=== PATIENT | female | born 1950 | race Caucasian/White ===

== ENCOUNTER 2020-01-02 10:43 | Outpatient (CLI) | payer MEDICARE, MEDICAID, SELFPAY ==
--- NOTE | ~2020-01-02 | CT_ITS ---
EXAMINATION: CT lung screening DATE: 01/02/2020 11:11 INDICATION: Personal history of tobacco dependence, current smoker with 30 pack year history TECHNIQUE: Computed tomography (CT) of the chest was performed without intravenous contrast. The dose -length product (DLP) was 90.01 mGy-cm. Automated exposure control and iterative reconstruction techn [employer] were employed. COMPARISON: 12/28/2018 FINDINGS: There is severe emphysema. Changes of left upper lobectomy are noted. A bronchocele in the left lower lobe. There is a stable 3 mm at the minor fissure. The previously described 5 mm nodule of the right lower lobe has nearly completely resolved, consistent with resolved infection/information. Calcified pulmonary nodules and calcified left hilar and mediastinal lymph nodes are consistent with old granulomatous disease. Fusion or pneumothorax. No pathologically enlarged thoracic lymph nodes a re identified. The heart size is normal. Again noted are cysts of the liver which measure up to 11 mm in the left lobe. Punctate calcifications of the liver and spleen are consistent with old granulomat ous disease. There is mild thoracic spondylosis. IMPRESSION: 1. Lung-RADS category 2: Benign appearance or behavior. Continue annual screening with noncontrast lo w-dose chest CT in 12 months. Reviewed, dictated and finalized at location B. IMPRESSION: 1. Lung-RADS category 2: Benign appearance or behavior. Continue annual screeni ng with noncontrast low-dose chest CT in 12 months.
== END 2020-01-02 10:44 | disposition home or self-care (01) ==
LOC: ANHIMG 10:47
PROVIDERS: PCP Internal Medicine; Visit Provider Nurse Practitioner Family
DX: Z12.2 Encounter for screening for malignant neoplasm of respiratory organs (principal); Z87.891 Personal history of nicotine dependence
CPT/HCPCS: G0297

== ENCOUNTER 2021-08-13 23:54 | Inpatient (IN) | payer MEDICARE, MEDICAID, SELFPAY ==
[2021-08-14] VITALS (18 sets, daily range): BP systolic 110–201; BP diastolic 55–115; PULSE 76–106; RESP 16–29; TEMP 35.9–37; O2SAT 92–99; BMI 21.0
--- NOTE | 2021-08-14 00:36 | ADMGEN ---
At 2358 This patient, Bonny Storey, was admitted to [facility] S[facility] Room 314-01. Patient/family oriented to hospital policies and general routines including ID bracelet, bed and alarms, visiting hours, pain management, procedures, bathroom and other care routines, personal items, smoking policy, room service/diet, and visiting hours. Information on how to activate the Rapid Response Team has been discussed. Patient/Family are encouraged to report perceived risks to care and to ask questions if they do not understand what they are told or what they should do.
--- NOTE | 2021-08-14 00:43 | PM.IMHP ---
H&P: HPI History of Present Illness Date/Time: 08/14/21 00:43 Chief Complaint: Vomiting blood Narrative: 70-year-old female with past medical history of chronic tobacco abuse, severe COPD, moderate pulmonary hypertension, hiatal hernia, peptic ulcer disease and chronic headaches who presented to the ER at [facility] via EMS due to vomiting blood. She reports that she vomited a large amount of blood. The patient reports that she had a EGD and colonoscopy a few months ago at [place] due to upper GI bleed. At the time she was told she had bleeding in her small bowel. She stated she had 1 EGD with [facility] [place] a [place] and then had to have a repeat EGD a few days later due to recurrent bleeding. She reports that she has been having a intermittent epigastric abdominal pain for the last couple of months. When the pain occurs it will last for 2 or 3 days. She reports that the pain is sharp and stabbing in nature and at times can be a 10/10 in intensity. She reports that her pain has resolved after being placed on IV Protonix 40 mg and a Protonix drip at the outside ER. Her pain radiates through to her back. Today when she had the pain she went to laid down. She the shortly thereafter had to get up because she felt nauseated and vomited a large amount of blood. She reported that the blood was dark red in color and. Have clots. She had not had anything to eat all day. She reports that she usually does not eat until the evening meal. She had not had any nausea prior to the onset of her abdominal pain. She denies any fevers or chills. She has been taking aspirin at least 2 tabs a day despite every day due to frequent headaches. She reports that the aspirin is the only thing that helps with her headaches. She has been compliant with her home PPI therapy. It looks as if the patient was started on Carafate in April after her recent GI bleed. The patient cannot tell me what PPI she is actually on it does not look like she has had her Protonix filled since May 2020. The patient denies actually being on omeprazole which is listed on her home med rec. She denies any use of ibuprofen, naproxen or Advil. She is not on blood thinners. She denies any chest pain. She has chronic shortness of breath and wheezing that is unchanged from baseline. She could then used to smoke a pack of cigarettes per day. She reports that when she had her recent GI bleed a few months ago that she required a couple of units of blood transfusion. She denies any hematochezia or melena. The patient's hemoglobin April 2021 was 15 according to the ER physician at the outside hospital. Patient's hemoglobin at the outside hospital was 11.3. Review of Systems Review of Systems: 12 systems were reviewed with pertinent positives and negatives per HPI. Except as documented in the HPI, all other systems were reviewed and are negative. [facility] Past Medical History Medical History (Updated 08/14/21 @ 04:41 by Vanita Fuchs DO) Anxiety and depression COPD (chronic obstructive pulmonary disease) PFTs May 2016: Severe obstructive pulmonary disease. Markedly decreased DLCO GERD (gastroesophageal reflux disease) History of cancer of lower lobe bronchus or lung Patient denies history of lung cancer or mass History of fracture of left ankle Hx of adenomatous colonic polyps Hypertension Moderate pulmonary hypertension Noted on echocardiogram December 2016: Grade 1 diastolic dysfunction, EF 77 5%, RVSP 45-50 PUD (peptic ulcer disease) Stye external Surgical History Surgical History (Updated 08/14/21 @ 04:38 by Vanita Fuchs DO) History of lobectomy of lung (~1999) Due to infected left upper lobe partial pneumonectomy Hx laparoscopic cholecystectomy Hx of colonoscopy Hx of esophagogastroduodenoscopy Hx of tonsillectomy Family History Family History Father Diabetes mellitus Sibl
[2021-08-14] MEDS: SODIUM CHLORIDE 0.9% IV 1,000 ML 100 ML IV CONT ×2 (01:19→10:39)
[2021-08-14 01:22] LABS: Basophils Absolute Auto 0.1 K/mm3 (0.0-0.1); Eosinophils Absolute Auto 0.1 K/mm3 (0-0.3); Eosinophils Percent Auto 0.9 % (0-4.4); Hematocrit 31.1 % (37.0-47.0); Hemoglobin 9.7 g/dL (12.0-15.0); Immature Granulocyte Absolute 0.03 K/mm3 (0.00-0.031); Immature Granulocyte Percent A 0.4 % (0-0.5); Lymphocytes Absolute Auto 1.75 K/mm3 (0.9-3.2); Mean Corpuscular HGB Conc 31.2 g/dl (32-36); Mean Corpuscular Hemoglobin 29.1 pg (26-34); Mean Corpuscular Volume 93.4 fl (80-100); Mean Platelet Volume 10.6 fl (7.4-10.4); Monocytes Absolute Auto 0.8 K/mm3 (0.1-0.6); Monocytes Percent Auto 9.4 % (2.6-8.5); Neutrophils Absolute Auto 5.3 K/mm3 (1.3-6.7); Neutrophils Percent Auto 66.3 % (45.5-73.1); Platelet Count Result 240 k/mm3 (150-375); Red Blood Count 3.33 M/mm3 (4.2-5.4); Red Cell Distribution Width 13.2 % (11.5-14.5)
[2021-08-14 01:33] LABS: Alanine Aminotransferase 10 U/L (4-35); Albumin Level 3.3 g/dL (3.5-5.1); Alkaline Phosphatase 54 U/L (38-126); Anion Gap 6 mmol/L (8-16); Aspartate Amino Transferase 18 U/L (14-36); Bilirubin,Total 0.5 mg/dL (0.2-1.3); Blood Urea Nitrogen 32 mg/dL (7-17); Calcium 8.1 mg/dL (8.4-10.2); Carbon Dioxide 30 mmol/L (22-30); Chloride 104 mmol/L (98-107); Estimated CRCL calculation 62 ml/min; Estimated Glomerular Filt Rate > 60; Glucose 94 mg/dL (65-110); Potassium 3.3 mmol/L (3.4-5.0); Sodium 140 mmol/L (137-145)
--- NOTE | 2021-08-14 05:24 | PC.NURSE ---
Pt up to restroom, large amount of bark red blood in the toilet and several blood clots on the floor. Pt said this is the first time she notice blood in her stool.
[2021-08-14 06:55] LABS: Hematocrit 28.2 % (37.0-47.0); Hemoglobin 8.8 g/dL (12.0-15.0)
[2021-08-14] MEDS: FLUTICASONE/UMECLIDIN/VILANTER 200-62.5-25 MCG ELLIPTA 1 PUFF INHALATION (07:58)
[2021-08-14] MEDS: IPRATROPIUM BR 0.02% INH SOLN 0.5 MG/2.5 ML VIAL INHALATION ×2 (07:58→19:37)
[2021-08-14] MEDS: ALBUTEROL SULFATE NEB 2.5 MG/0.5 ML INH 5 MG INHALATION ×2 (07:58→19:37)
--- NOTE | 2021-08-14 11:15 | PC.NURSE ---
To GI lab via wheelchair.
[2021-08-14] MEDS: LACTATED RINGERS 1,000 ML 150 ML IV CONT (11:30)
--- NOTE | 2021-08-14 11:53 | WPDGICN ---
Assessment and Plan Assessment and plan (1) Upper GI hemorrhage: Code(s): K92.2 - Gastrointestinal hemorrhage, unspecified Status: Acute Assessment and Plan: per patient she had bleeding from small bowel few months ago and was treated endoscopically will proceed with urgent EGD, already on iv protonix more recommendations after scope (2) Acute blood loss anemia: Code(s): D62 - Acute posthemorrhagic anemia Status: Acute Assessment and Plan: trend h/h and transfuse if below 7 on iv protonix (3) Epigastric pain: Code(s): R10.13 - Epigastric pain Status: Acute Assessment and Plan: comfortable, will assess with egd (4) COPD (chronic obstructive pulmonary disease): Qualifiers: COPD type: unspecified COPD Qualified Code(s): J44.9 - Chronic obstructive pulmonary disease, unspecified Code(s): J44.9 - Chronic obstructive pulmonary disease, unspecified Status: Acute Assessment and Plan: on meds at home (5) GERD (gastroesophageal reflux disease): Code(s): K21.9 - Gastro-esophageal reflux disease without esophagitis Status: Acute GI Consult Note Consult date/time: 08/14/21 11:53 Reason for consult: hematemesis HPI: Bonny Storey is a 70 year old female with bleeding duodenal ulcer about 6 months ago treated endoscopically at [place], her last colonoscopy 02/2019 with several polyps removed, also diverticulosis and Dr Streeter recommended to repeat in 1 year. She has past medical history of chronic tobacco abuse, severe COPD, moderate pulmonary hypertension, hiatal hernia. She presented yesterday to [facility] via EMS due to new onset of vomiting blood, reports that she vomited a large amount of blood and also had dark stool. She also has been having epigastric discomfort for last 2 months, using aspirin daily, she is on ppi. ER physician called me yesterday to have this patient transferred to use since they did not have GI coverage. Hb 11 and repeat 8.8, bun 32, creatinine 0.6, normal liver enzymes. Started on iv protonix and she is npo. Review of Systems Constitutional: Constitutional: Reports fatigue Eyes: Eyes: Denies blurry vision ENT: Reports Normal hearing present Cardiovascular: Cardiovascular: Denies leg edema Respiratory: Respiratory: Denies cough Gastrointestinal: Gastrointestinal: Reports abdominal pain and Reports hematemesis Genitourinary: Genitourinary: Denies hematuria Musculoskeletal: Musculoskeletal: Denies neck pain Integumentary/Breasts: Skin/Breast: Denies dry skin Neurologic: Denies headache(s) Psychiatric: Psychiatric: Denies behavioral changes [facility] Past Medical History Medical History (Updated 08/14/21 @ 12:35 by Yuriy Rico MD) Anxiety and depression COPD (chronic obstructive pulmonary disease) PFTs May 2016: Severe obstructive pulmonary disease. Markedly decreased DLCO Epigastric pain GERD (gastroesophageal reflux disease) History of cancer of lower lobe bronchus or lung Patient denies history of lung cancer or mass History of fracture of left ankle Hx of adenomatous colonic polyps Hypertension Moderate pulmonary hypertension Noted on echocardiogram December 2016: Grade 1 diastolic dysfunction, EF 77 5%, RVSP 45-50 PUD (peptic ulcer disease) Stye external Surgical History Surgical History (Updated 08/14/21 @ 04:38 by Vanita Fuchs DO) History of lobectomy of lung (~1999) Due to infected left upper lobe partial pneumonectomy Hx laparoscopic cholecystectomy Hx of colonoscopy Hx of esophagogastroduodenoscopy Hx of tonsillectomy Family History Family History Father Diabetes mellitus Sibling Family history of chronic obstructive pulmonary disease, Onset Age: 49 Mother Family history of chronic obstructive pulmonary disease, Onset Age: 72 Social H
--- NOTE | 2021-08-14 12:36 | WPDANESEPPF ---
Anes - Initial Pre Proc Eval Procedure: Operation Date: 08/14/21 12:30 Proposed Procedures p Esophagogastroduodenoscopy - Yuriy Rico MD Date/Time: 08/14/21 12:36 Surgeon: Vanita Fuchs DO Pre Op Diagnosis: Upper GI bleed-protonix Patient Data Age: 70 Gender: F Height: 1.6 m Weight: 53.9 kg Last Vital Signs Temp 98.2 F 08/14/21 11:26 Pulse 89 08/14/21 11:26 Resp 20 08/14/21 11:26 BP 129/66 08/14/21 11:26 Pulse Ox 95 08/14/21 11:26 Allergies Allergy/AdvReac Type Severity Reaction Status Date / Time No Known Allergies Allergy Verified 08/14/21 11:25 Home Medications Medication Instructions Recorded Confirmed Type citalopram 20 mg PO DAILY 03/05/19 08/14/21 History clonazepam 0.5 mg PO DAILY PRN 03/05/19 08/14/21 History lisinopril 20 mg PO DAILY 03/05/19 08/14/21 History omeprazole 20 mg PO DAILY 03/05/19 08/14/21 History trazodone 100 mg PO HS 03/05/19 08/14/21 History roflumilast 500 mcg tablet 500 mcg PO DAILY #30 tablet 03/26/19 08/14/21 Rx albuterol sulfate 2.5 mg INHALATION QID PRN ml 12/01/20 08/14/21 History ipratropium bromide 17 See Rx Instructions .ROUTE 07/02/21 08/14/21 Rx mcg/actuation HFA aerosol inhaler .COMPLEX #51.6 g budesonide 160 mcg-glycopyr 9 See Rx Instructions .ROUTE 07/15/21 08/14/21 Rx mcg-formot 4.8 mcg/actuation HFA .COMPLEX #32.1 g inhaler Laboratory Tests 08/14/21 08/14/21 08/14/21 01:02 01:02 06:25 WBC 8.0 K/mm3 K/mm3 (4.5-10.0) RBC 3.33 M/mm3 L M/mm3 (4.2-5.4) Hgb 9.7 g/dL L g/dL 8.8 g/dL L g/dL (12.0-15.0) (12.0-15.0) Hct 31.1 % L % 28.2 % L % (37.0-47.0) (37.0-47.0) MCV 93.4 fl fl (80-100) MCH 29.1 pg pg (26-34) MCHC 31.2 g/dl L g/dl (32-36) RDW 13.2 % % (11.5-14.5) Plt Count 240 k/mm3 k/mm3 (150-375) MPV 10.6 fl H fl (7.4-10.4) Immature Gran % (Auto) 0.4 % % (0-0.5) Neut % (Auto) 66.3 % % (45.5-73.1) Lymph % (Auto) 22.0 % % (18.3-44.2) Canadian % (Auto) 9.4 % H % (2.6-8.5) Eos % (Auto) 0.9 % % (0-4.4) Baso % (Auto) 1.0 % % (0.2-1.2) Lymph # (Auto) 1.75 K/mm3 K/mm3 (0.9-3.2) Canadian # (Auto) 0.8 K/mm3 H K/mm3 (0.1-0.6) Eos # (Auto) 0.1 K/mm3 K/mm3 (0-0.3) Baso # (Auto) 0.1 K/mm3 K/mm3 (0.0-0.1) Abs Immat Gran (auto) 0.03 K/mm3 K/mm3 (0.00-0.031) Absolute Neuts (auto) 5.3 K/mm3 K/mm3 (1.3-6.7) Absolute Nucleated RBC 0.0 K/mm3 K/mm3 (0.0-0.012) Nucleated RBC % 0.0 % % (0.0-0.2) Sodium 140 mmol/L mmol/L (137-145) Potassium 3.3 mmol/L L mmol/L (3.4-5.0) Chloride 104 mmol/L mmol/L (98-107) Carbon Dioxide 30 mmol/L mmol/L (22-30) Anion Gap 6 mmol/L L mmol/L (8-16) BUN 32 mg/dL H mg/dL (7-17) Creatinine 0.60 mg/dL L mg/dL (0.7-1.0) Estim Creat Clear Calc 62 ml/min ml/min Estimated GFR > 60 (59 - ) Glucose 94 mg/dL mg/dL (65-110) Calcium 8.1 mg/dL L mg/dL (8.4-10.2) Total Bilirubin 0.5 mg/dL mg/dL (0.2-1.3) AST 18 U/L U/L (14-36) ALT 10 U/L U/L (4-35) Alkaline Phosphatase 54 U/L U/L (38-126) Total Protein 6.0 g/dL L g/dL (6.3-8.2) Albumin 3.3 g/dL L g/dL (3.5-5.1) Patient hx anesthesia problems: none Family hx anesthesia problems: none Results Review: All pre-operative results and documents have been reviewed as part of the pre-operative evaluation. [facility] Past Medical History Medical History (Updated 08/14/21 @ 12:35 by Yuriy Rico MD) Anxiety and depression COPD (chronic obstructive pulmonary disease) PFTs May 2016: Severe obstructive pulmonary disease. Markedly decreased DLCO Epigastric pain GERD (gastroesophageal
[2021-08-14] MEDS: EPINEPHrine INJ 1 MG/10 ML SYRINGE 0.4 MG XX (13:01)
--- NOTE | 2021-08-14 13:15 | SUR.PHASEII ---
Per Dr. Jonatan vargas to order one time dose of 1mg of morphine
[2021-08-14] MEDS: MORPHINE SULFATE (*CRX) 2 MG/ML INJ 1 MG IV PUSH (13:21)
[2021-08-14] MEDS: fentaNYL CITRATE INJ (*CRX) 100 MCG/2 ML VIAL 25 MCG IV PUSH (13:41)
[2021-08-14] MEDS: ONDANSETRON INJ 4 MG/2 ML VIAL IV PUSH (13:59)
--- NOTE | 2021-08-14 14:15 | PC.NURSE ---
Back from GI Lab via stretcher.
[2021-08-14] MEDS: MORPHINE SULFATE (*CRX) 2 MG/ML INJ IV PUSH (14:58)
[2021-08-14] MEDS: POTASSIUM CHLORIDE INJ 40 MEQ in SODIUM CHLORIDE 0.9% IV 500 ML 130 MEQ IVPB (15:13)
[2021-08-14] MEDS: HYDROmorphone HCL INJ (*CRX) 1 MG/ML SYR 0.5 MG IV PUSH ×3 (15:29→22:42)
--- NOTE | 2021-08-14 17:51 | PM.IMPN ---
Progress Note: A&P Assessment and Plan (1) Upper GI hemorrhage: Code(s): K92.2 - Gastrointestinal hemorrhage, unspecified Status: Acute (2) Acute blood loss anemia: Code(s): D62 - Acute posthemorrhagic anemia Status: Acute (3) Tobacco abuse: Code(s): Z72.0 - Tobacco use Status: Acute (4) COPD (chronic obstructive pulmonary disease): Qualifiers: COPD type: unspecified COPD Qualified Code(s): J44.9 - Chronic obstructive pulmonary disease, unspecified Code(s): J44.9 - Chronic obstructive pulmonary disease, unspecified Status: Acute Additional Plan Patient has acute blood loss anemia due to upper GI bleed. Patient has been placed on a Protonix drip. She received 40 of p.o. PPI therapy at home and 40 mg of IV Protonix at outside ER. She was subsequently started on 8 milligram/hour Protonix drip. Gastroenterology was consulted and the patient was transferred to our facility for further treatment and management. Patient's prior EGD and colonoscopy have been performed at [facility] however the evidently do not have a audio video repairer on-call currently. Dr. Lam has agreed to see the patient in consult. The patient remains NPO. Will continue IV fluid hydration. I have discussed with the patient in great detail how important it is for her to never take aspirin neck specially in such large doses ever again given her report of recurrent GI bleeding. The patient's repeat hemoglobin here had dropped from 11.3 down to 9.7. Patient denies any further a matted emesis at the time of my evaluation. Will continue to monitor serial H&Hs every 6 hours. Patient has chronic tobacco use. I discussed patient that tobacco use can also increase her risk of recurrent GI bleeds. Patient is not interested in tobacco cessation education at this time. Nicotine patch was offered but the patient declined. Patient does have chronic COPD but her respiratory status is stable. Will place patient on scheduled nebulizer treatments with albuterol and Atrovent to assist with pulmonary toilet during her acute illness. Will substitute the patient's home inhaled corticosteroid with Trelegy. Patient has been admitted as observation status. 08/14/2021 Interval history: patient with recurrent GI bleeding was taken to the GI lab and had a EGD showed patient had bleeding vessel and duodenal and was cauterized and clipped was placed, patient continue to complaint abdominal pain will get the patient Dilaudid 0.5 mg every 3 hours as needed, will continue to monitor and further recommendation to follow Subjective Date/time seen: 08/14/21 17:51 Chief Complaint: Vomiting blood HPI-Narrative: 70-year-old female with past medical history of chronic tobacco abuse, severe COPD, moderate pulmonary hypertension, hiatal hernia, peptic ulcer disease and chronic headaches who presented to the ER at [facility] via EMS due to vomiting blood. She reports that she vomited a large amount of blood. The patient reports that she had a EGD and colonoscopy a few months ago at [place] due to upper GI bleed. At the time she was told she had bleeding in her small bowel. She stated she had 1 EGD with [place] a [place] and then had to have a repeat EGD a few days later due to recurrent bleeding. She reports that she has been having a intermittent epigastric abdominal pain for the last couple of months. When the pain occurs it will last for 2 or 3 days. She reports that the pain is sharp and stabbing in nature and at times can be a 10/10 in intensity. She reports that her pain has resolved after being placed on IV Protonix 40 mg and a Protonix drip at the outside ER. Her pain radiates through to her back. Today when she had the pain she went to laid down. She the shortly thereafter had to get up because she felt nauseated and vomited a large amount of blood. She reported that the blo
[2021-08-14 18:10] LABS: Hematocrit 30.1 % (37.0-47.0); Hemoglobin 9.4 g/dL (12.0-15.0)
[2021-08-15] VITALS (19 sets, daily range): BP systolic 104–138; BP diastolic 56–68; PULSE 82–101; RESP 14–20; TEMP 36.2–37.1; O2SAT 90–99
[2021-08-15] MEDS: HYDROmorphone HCL INJ (*CRX) 1 MG/ML SYR 0.5 MG IV PUSH (01:59)
[2021-08-15] MEDS: SODIUM CHLORIDE 0.9% IV 1,000 ML 100 ML IV CONT ×2 (02:06→12:33)
[2021-08-15] MEDS: ALBUTEROL SULFATE NEB 2.5 MG/0.5 ML INH 5 MG INHALATION ×4 (02:10→20:22)
[2021-08-15] MEDS: IPRATROPIUM BR 0.02% INH SOLN 0.5 MG/2.5 ML VIAL INHALATION ×4 (02:10→20:23)
[2021-08-15 02:23] LABS: Hematocrit 26.5 % (37.0-47.0); Hemoglobin 8.2 g/dL (12.0-15.0)
[2021-08-15] MEDS: ONDANSETRON INJ 4 MG/2 ML VIAL IV PUSH (02:36)
[2021-08-15 06:41] LABS: Hematocrit 27.8 % (37.0-47.0); Hemoglobin 8.3 g/dL (12.0-15.0); Mean Corpuscular HGB Conc 29.9 g/dl (32-36); Mean Corpuscular Volume 97.2 fl (80-100); Mean Platelet Volume 11.5 fl (7.4-10.4); Platelet Count Result 152 k/mm3 (150-375); Red Blood Count 2.86 M/mm3 (4.2-5.4); Red Cell Distribution Width 13.2 % (11.5-14.5); White Blood Count 11.6 K/mm3 (4.5-10.0)
[2021-08-15 07:14] LABS: Anion Gap 4 mmol/L (8-16); Blood Urea Nitrogen 10 mg/dL (7-17); Calcium 7.8 mg/dL (8.4-10.2); Carbon Dioxide 26 mmol/L (22-30); Chloride 107 mmol/L (98-107); Estimated CRCL calculation 89 ml/min; Estimated Glomerular Filt Rate > 60; Glucose 112 mg/dL (65-110); Magnesium 1.7 mg/dL (1.6-2.3); Potassium 3.5 mmol/L (3.4-5.0); Sodium 137 mmol/L (137-145)
--- NOTE | 2021-08-15 07:14 | WPDANESPN ---
Anes - Prog Note Post-Op Date/Time: 08/15/21 07:14 Cardiovascular status: normal Respiratory status: normal Airway patency: baseline Mental status: baseline Post-Op hydration status: normal Vital Signs: Last Vital Signs Temp 98.7 F 08/15/21 04:00 Pulse 101 H 08/15/21 04:00 Resp 18 08/15/21 04:00 BP 122/56 L 08/15/21 04:00 Pulse Ox 94 08/15/21 04:00 Pain Score (VAS): 0/10 I/O: Intake & Output 08/14/21 08/14/21 08/15/21 15:59 23:59 07:59 Intake Total 1600 1640 500 Balance 1600 1640 500 Laboratory Tests 08/15/21 06:04 08/15/21 06:04 08/14/21 08/15/21 08/15/21 18:06 01:46 06:04 WBC RBC Hgb 9.4 L 8.2 L Hct 30.1 L 26.5 L MCV MCH MCHC RDW Plt Count MPV Sodium 137 Potassium 3.5 Chloride 107 Carbon Dioxide 26 Anion Gap 4 L BUN 10 D Creatinine 0.40 L Estim Creat Clear Calc 89 Estimated GFR > 60 Glucose 112 H Calcium 7.8 L Magnesium 1.7 08/15/21 06:04 WBC 11.6 H RBC 2.86 L Hgb 8.3 L Hct 27.8 L MCV 97.2 MCH 29.0 MCHC 29.9 L RDW 13.2 Plt Count 152 MPV 11.5 H Sodium Potassium Chloride Carbon Dioxide Anion Gap BUN Creatinine Estim Creat Clear Calc Estimated GFR Glucose Calcium Magnesium Post-procedural complaints: none Patient Feedback: Patient satisfied with anesthetic care.
[2021-08-15] MEDS: FLUTICASONE/UMECLIDIN/VILANTER 200-62.5-25 MCG ELLIPTA 1 PUFF INHALATION (08:50)
[2021-08-15 11:47] LABS: Hematocrit 25.6 % (37.0-47.0); Hemoglobin 7.8 g/dL (12.0-15.0)
--- NOTE | 2021-08-15 13:08 | WPDGIPROGNO ---
Progress Note: A&P Assessment and Plan (1) Duodenal ulcer: Code(s): K26.9 - Duodenal ulcer, unspecified as acute or chronic, without hemorrhage or perforation Status: Acute Assessment and Plan: actively bleeding yesterday and treated successfully endoscopically overall better and no more signs of bleeding hb low but stable ok to switch to protonix twice daily will need egd in 3 months to assess healing (2) Upper GI hemorrhage: Code(s): K92.2 - Gastrointestinal hemorrhage, unspecified Status: Acute Assessment and Plan: resolved trend h/h (3) Acute blood loss anemia: Code(s): D62 - Acute posthemorrhagic anemia Status: Acute (4) Epigastric pain: Code(s): R10.13 - Epigastric pain Status: Acute Assessment and Plan: resolved (5) COPD (chronic obstructive pulmonary disease): Qualifiers: COPD type: unspecified COPD Qualified Code(s): J44.9 - Chronic obstructive pulmonary disease, unspecified Code(s): J44.9 - Chronic obstructive pulmonary disease, unspecified Status: Acute (6) Hypertension: Code(s): I10 - Essential (primary) hypertension Status: Acute (7) Hx of adenomatous colonic polyps: Code(s): Z86.010 - Personal history of colonic polyps Status: Acute Assessment and Plan: she is due to have another colonoscopy will repeat in 3 months with EGD Subjective Date/time seen: 08/15/21 13:08 Interval history: egd yesterday revealed active bleeding from duodenal ulcer that required intervention. Epigastric pain finally resolved (required pain medication after scope since received epinephrine to control bleeding). She is comfortable now, no more hematemesis, tolerating diet. Review of Systems Review of Systems: All systems reviewed & are unremarkable except as noted in HPI and below Exam Const: General: comfortable and no acute distress HENMT: General nose exam: Normal nares present Eyes: General: appearance normal, both eyes and all related structures Neck: Neck: no JVD Resp: Auscultation: no crackles and diminished lung sounds Cardio: Rate: regular rate Rhythm: regular rhythm GI: Inspection: non-distended GI Palp: Yes Soft to palpation and No Guarding due to palpation present (GI) Auscultation: normal bowel sounds Skin: General skin exam: normal color Neuro: Speech: normal speech Motor exam (neuro): Normal motor muscle tone present throughout Extrem: General: normal to inspection Psych: Mental Status: mental status grossly normal Objective Data Vital Signs Vital Signs: Vital Signs - 24 hr 08/14/21 13:15 08/14/21 13:25 08/14/21 13:35 Temperature Pulse Rate 106 H 88 86 Respiratory Rate 27 H 28 H 22 H Blood Pressure 193/115 H 201/99 H 177/93 H Pulse Oximetry 99 93 95 08/14/21 13:44 08/14/21 14:15 08/14/21 14:18 Temperature 98.6 F Pulse Rate 88 77 Respiratory Rate 29 H 20 Blood Pressure 187/99 H 153/77 H Pulse Oximetry 93 97 97 08/14/21 15:49 08/14/21 19:39 08/14/21 19:41 Temperature 96.7 F L Pulse Rate 76 80 Respiratory Rate 18 20 Blood Pressure 156/85 H Pulse Oximetry 97 93 08/14/21 19:51 08/14/21 20:00 08/15/21 00:00 Temperature 97.7 F 98.8 F Pulse Rate 84 88 87 Respiratory Rate 20 16 16 Blood Pressure 151/71 H 138/65 Pulse Oximetry 97 94 08/15/21 02:12 08/15/21 02:21 08/15/21 04:00 Temperature 98.7 F Pulse Rate 86 88 101 H Respiratory Rate 18 18 18 Blood Pressure 122/56 L Pulse Oximetry 94 08/15/21 08:00 08/15/21 08:20 08/15/21 08:53 Temperature 97.6 F Pulse Rate 86 82 Respiratory Rate 14 18 Blood Pressure 122/63 Pulse Oximetry 98 99 08/15/21 08:54 08/15/21 09:03 08/15/21 09:04 Temperature Pulse Rate 82 85 85 Respiratory Rate 18 18 18 Blood Pressure Pulse Oximetry 99 Intake/Output Intake/Output: Intake & Output 08/12/21 08/13/21 08/14/21 08/15/21 23:59 23:59 23:59 23:5
--- NOTE | 2021-08-15 14:50 | PM.IMPN ---
Progress Note: A&P Assessment and Plan (1) Upper GI hemorrhage: Code(s): K92.2 - Gastrointestinal hemorrhage, unspecified Status: Acute (2) Acute blood loss anemia: Code(s): D62 - Acute posthemorrhagic anemia Status: Acute (3) Tobacco abuse: Code(s): Z72.0 - Tobacco use Status: Acute (4) COPD (chronic obstructive pulmonary disease): Qualifiers: COPD type: unspecified COPD Qualified Code(s): J44.9 - Chronic obstructive pulmonary disease, unspecified Code(s): J44.9 - Chronic obstructive pulmonary disease, unspecified Status: Acute Additional Plan Patient has acute blood loss anemia due to upper GI bleed. Patient has been placed on a Protonix drip. She received 40 of p.o. PPI therapy at home and 40 mg of IV Protonix at outside ER. She was subsequently started on 8 milligram/hour Protonix drip. Gastroenterology was consulted and the patient was transferred to our facility for further treatment and management. Patient's prior EGD and colonoscopy have been performed at [facility] however the evidently do not have a web site designer on-call currently. Dr. Lam has agreed to see the patient in consult. The patient remains NPO. Will continue IV fluid hydration. I have discussed with the patient in great detail how important it is for her to never take aspirin neck specially in such large doses ever again given her report of recurrent GI bleeding. The patient's repeat hemoglobin here had dropped from 11.3 down to 9.7. Patient denies any further a matted emesis at the time of my evaluation. Will continue to monitor serial H&Hs every 6 hours. Patient has chronic tobacco use. I discussed patient that tobacco use can also increase her risk of recurrent GI bleeds. Patient is not interested in tobacco cessation education at this time. Nicotine patch was offered but the patient declined. Patient does have chronic COPD but her respiratory status is stable. Will place patient on scheduled nebulizer treatments with albuterol and Atrovent to assist with pulmonary toilet during her acute illness. Will substitute the patient's home inhaled corticosteroid with Trelegy. Patient has been admitted as observation status. 08/14/2021 Interval history: patient with recurrent GI bleeding was taken to the GI lab and had a EGD showed patient had bleeding vessel and duodenal and was cauterized and clipped was placed, patient continue to complaint abdominal pain will get the patient Dilaudid 0.5 mg every 3 hours as needed, will continue to monitor and further recommendation to follow. 08/15/2021 Interval history: patient with recurrent GI bleeding was taken to the GI lab and had a EGD showed patient had bleeding vessel and duodenal and was cauterized and clipped was placed, patient continue to complaint abdominal pain will get the patient Dilaudid 0.5 mg every 3 hours as needed, today patient states feeling tired and fatigued, her hemoglobin is slowly trending down, will do iron profile, patient seen by GI and stopped the Protonix drip and place the patient on Protonix 40 mg b.i.d. will continue to monitor and further recommendation to follow Subjective Date/time seen: 08/15/21 14:50 08/14/2021 Interval history: patient with recurrent GI bleeding was taken to the GI lab and had a EGD showed patient had bleeding vessel and duodenal and was cauterized and clipped was placed, patient continue to complaint abdominal pain will get the patient Dilaudid 0.5 mg every 3 hours as needed, will continue to monitor and further recommendation to follow 08/15/2021 Interval history: patient with recurrent GI bleeding was taken to the GI lab and had a EGD showed patient had bleeding vessel and duodenal and was cauterized and clipped was placed, patient continue to complaint abdominal pain will get the patient Dilaudid 0.5 mg every 3 hours as needed, today patient states feeling tired an
[2021-08-15 16:16] LABS: Iron 29 ug/dL (37-170)
[2021-08-15 16:25] LABS: Percent Iron Saturation 9 % (20-50)
[2021-08-15 16:52] LABS: Ferritin 7.98 ng/mL (11.1-264)
[2021-08-15 17:20] LABS: Folic Acid 11.2 ng/mL (2.76->20)
[2021-08-15] MEDS: PANTOPRAZOLE SODIUM IV 40 MG VIAL IV PUSH (20:35)
[2021-08-16] VITALS (26 sets, daily range): BP systolic 115–156; BP diastolic 54–93; PULSE 73–89; RESP 16–20; TEMP 35.7–38.1; O2SAT 93–100
[2021-08-16 00:53] LABS: Hematocrit 22.9 % (37.0-47.0); Hemoglobin 7.1 g/dL (12.0-15.0)
[2021-08-16] MEDS: IPRATROPIUM BR 0.02% INH SOLN 0.5 MG/2.5 ML VIAL INHALATION ×4 (02:26→20:10)
[2021-08-16] MEDS: ALBUTEROL SULFATE NEB 2.5 MG/0.5 ML INH 5 MG INHALATION ×4 (02:26→20:10)
[2021-08-16] MEDS: ACETAMINOPHEN 325 MG TABLET 650 MG PO (05:00)
[2021-08-16 06:08] LABS: Hematocrit 22.6 % (37.0-47.0); Mean Corpuscular Volume 93.8 fl (80-100); Mean Platelet Volume 10.2 fl (7.4-10.4); Platelet Count Result 156 k/mm3 (150-375); Red Blood Count 2.41 M/mm3 (4.2-5.4); Red Cell Distribution Width 13.4 % (11.5-14.5); White Blood Count 5.1 K/mm3 (4.5-10.0)
--- NOTE | 2021-08-16 06:09 | PC.NURSE ---
0600 pt informs nurse that rt front tooth loose and she feels lip is swelling.
[2021-08-16 06:28] LABS: Anion Gap 3 mmol/L (8-16); Blood Urea Nitrogen 4 mg/dL (7-17); Calcium 7.8 mg/dL (8.4-10.2); Carbon Dioxide 29 mmol/L (22-30); Chloride 107 mmol/L (98-107); Estimated CRCL calculation 73 ml/min; Estimated Glomerular Filt Rate > 60; Glucose 100 mg/dL (65-110); Magnesium 1.7 mg/dL (1.6-2.3); Potassium 3.1 mmol/L (3.4-5.0); Sodium 139 mmol/L (137-145)
[2021-08-16] MEDS: FLUTICASONE/UMECLIDIN/VILANTER 200-62.5-25 MCG ELLIPTA 1 PUFF INHALATION (07:44)
[2021-08-16] MEDS: PANTOPRAZOLE SODIUM IV 40 MG VIAL IV PUSH ×2 (08:09→20:48)
[2021-08-16] MEDS: POTASSIUM CHLORIDE 20 MEQ TABLET 40 MEQ PO (09:28)
[2021-08-16] MEDS: MAGNESIUM OXIDE 400 MG TABLET PO (09:29)
[2021-08-16] MEDS: IRON SUCROSE COMPLEX 400 MG in SODIUM CHLORIDE 0.9% IV 250 ML 108 MG IVPB (09:31)
--- NOTE | 2021-08-16 11:50 | WPDGIPROGNO ---
Progress Note: A&P Assessment and Plan (1) Duodenal ulcer: Code(s): K26.9 - Duodenal ulcer, unspecified as acute or chronic, without hemorrhage or perforation Status: Acute Assessment and Plan: actively bleeding on admission and treated successfully endoscopically with gold probe, epi and clip she denies any more bleeding hb 7, probably will benefit from another unit of blood transfusion continue protonix twice daily will arrange egd in 3 months to assess healing (2) Upper GI hemorrhage: Code(s): K92.2 - Gastrointestinal hemorrhage, unspecified Status: Acute Assessment and Plan: resolved trend h/h iv iron avoid nsaid's (she says that was taking daily aspirin because pain- advised to discontinue) (3) Acute blood loss anemia: Code(s): D62 - Acute posthemorrhagic anemia Status: Acute (4) Epigastric pain: Code(s): R10.13 - Epigastric pain Status: Acute Assessment and Plan: resolved (5) COPD (chronic obstructive pulmonary disease): Qualifiers: COPD type: unspecified COPD Qualified Code(s): J44.9 - Chronic obstructive pulmonary disease, unspecified Code(s): J44.9 - Chronic obstructive pulmonary disease, unspecified Status: Acute (6) Hypertension: Code(s): I10 - Essential (primary) hypertension Status: Acute (7) Hx of adenomatous colonic polyps: Code(s): Z86.010 - Personal history of colonic polyps Status: Acute Assessment and Plan: she is due to have another colonoscopy will repeat in 3 months with EGD Subjective Date/time seen: 08/16/21 11:50 Interval history: clinically doing better, denies any more bleeding since admission. She is on iv iron now, hb down to 7 from 8 Review of Systems Review of Systems: All systems reviewed & are unremarkable except as noted in HPI and below Exam Const: General: comfortable and no acute distress HENMT: General nose exam: Normal nares present Eyes: General: appearance normal, both eyes and all related structures Neck: Neck: no JVD Resp: Auscultation: no crackles and diminished lung sounds Cardio: Rate: regular rate Rhythm: regular rhythm GI: Inspection: non-distended GI Palp: Yes Soft to palpation and No Guarding due to palpation present (GI) Auscultation: normal bowel sounds Skin: General skin exam: normal color Neuro: Speech: normal speech Motor exam (neuro): Normal motor muscle tone present throughout Extrem: General: normal to inspection Psych: Mental Status: mental status grossly normal Objective Data Vital Signs Vital Signs: Vital Signs - 24 hr 08/15/21 12:00 08/15/21 14:24 08/15/21 14:32 Temperature 97.3 F L Pulse Rate 86 84 85 Respiratory Rate 14 18 18 Blood Pressure 104/68 Pulse Oximetry 94 97 08/15/21 14:34 08/15/21 16:00 08/15/21 20:00 Temperature 97.2 F L 97.8 F Pulse Rate 85 88 86 Respiratory Rate 18 14 20 Blood Pressure 116/62 126/67 Pulse Oximetry 92 93 08/15/21 20:25 08/15/21 20:26 08/15/21 20:36 Temperature Pulse Rate 97 100 Respiratory Rate 18 18 Blood Pressure Pulse Oximetry 90 08/16/21 00:00 08/16/21 00:33 08/16/21 02:28 Temperature 97.5 F L Pulse Rate 85 78 Respiratory Rate 16 18 Blood Pressure 156/93 H 140/75 Pulse Oximetry 97 08/16/21 02:38 08/16/21 04:00 08/16/21 04:38 Temperature 100.6 F H 100.0 F H Pulse Rate 80 89 Respiratory Rate 18 18 Blood Pressure 130/70 Pulse Oximetry 94 08/16/21 05:55 08/16/21 07:44 08/16/21 07:54 Temperature 98.7 F Pulse Rate 73 75 Respiratory Rate 18 18 Blood Pressure Pulse Oximetry 08/16/21 07:55 08/16/21 07:57 08/16/21 08:00 Temperature 96.2 F L Pulse Rate 75 88 Respiratory Rate 18 16 Blood Pressure 115/58 L Pulse Oximetry 95 97 08/16/21 08:10 Temperature Pulse Rate Respiratory Rate Blood Pressure Pulse Oximetry 95 Intake/Output Intake/Output: Intake & Outp
[2021-08-16] MEDS: ROFLUMILAST 500 MCG TABLET PO (12:31)
[2021-08-16] MEDS: CITALOPRAM HYDROBROMIDE 20 MG TABLET PO (12:31)
[2021-08-16] MEDS: SODIUM CHLORIDE 0.9% IV 250 ML 30 ML IV CONT (13:05)
--- NOTE | 2021-08-16 13:18 | PM.IMPN ---
Progress Note: A&P Assessment and Plan (1) Upper GI hemorrhage: Code(s): K92.2 - Gastrointestinal hemorrhage, unspecified Status: Acute (2) Acute blood loss anemia: Code(s): D62 - Acute posthemorrhagic anemia Status: Acute (3) Tobacco abuse: Code(s): Z72.0 - Tobacco use Status: Acute (4) COPD (chronic obstructive pulmonary disease): Qualifiers: COPD type: unspecified COPD Qualified Code(s): J44.9 - Chronic obstructive pulmonary disease, unspecified Code(s): J44.9 - Chronic obstructive pulmonary disease, unspecified Status: Acute Additional Plan Patient has acute blood loss anemia due to upper GI bleed. Patient has been placed on a Protonix drip. She received 40 of p.o. PPI therapy at home and 40 mg of IV Protonix at outside ER. She was subsequently started on 8 milligram/hour Protonix drip. Gastroenterology was consulted and the patient was transferred to our facility for further treatment and management. Patient's prior EGD and colonoscopy have been performed at [facility] however the evidently do not have a lithographic stripper on-call currently. Dr. Lam has agreed to see the patient in consult. The patient remains NPO. Will continue IV fluid hydration. I have discussed with the patient in great detail how important it is for her to never take aspirin neck specially in such large doses ever again given her report of recurrent GI bleeding. The patient's repeat hemoglobin here had dropped from 11.3 down to 9.7. Patient denies any further a matted emesis at the time of my evaluation. Will continue to monitor serial H&Hs every 6 hours. Patient has chronic tobacco use. I discussed patient that tobacco use can also increase her risk of recurrent GI bleeds. Patient is not interested in tobacco cessation education at this time. Nicotine patch was offered but the patient declined. Patient does have chronic COPD but her respiratory status is stable. Will place patient on scheduled nebulizer treatments with albuterol and Atrovent to assist with pulmonary toilet during her acute illness. Will substitute the patient's home inhaled corticosteroid with Trelegy. Patient has been admitted as observation status. 08/14/2021 Interval history: patient with recurrent GI bleeding was taken to the GI lab and had a EGD showed patient had bleeding vessel and duodenal and was cauterized and clipped was placed, patient continue to complaint abdominal pain will get the patient Dilaudid 0.5 mg every 3 hours as needed, will continue to monitor and further recommendation to follow. 08/15/2021 Interval history: patient with recurrent GI bleeding was taken to the GI lab and had a EGD showed patient had bleeding vessel and duodenal and was cauterized and clipped was placed, patient continue to complaint abdominal pain will get the patient Dilaudid 0.5 mg every 3 hours as needed, today patient states feeling tired and fatigued, her hemoglobin is slowly trending down, will do iron profile, patient seen by GI and stopped the Protonix drip and place the patient on Protonix 40 mg b.i.d. will continue to monitor and further recommendation to follow. 08/16/2021 Interval history: patient with recurrent GI bleeding was taken to the GI lab on 08/14 and had a EGD showed patient had bleeding vessel duodenal and was cauterized and clipped was placed, patient continue to complaint abdominal pain will get the patient Dilaudid 0.5 mg every 3 hours as needed, today patient states feeling tired and fatigued, her hemoglobin is slowly trending down today it is 7 will give 1 units PRBC, iron profile showed low will give venofer, patient seen by GI and stopped the Protonix drip and place the patient on Protonix 40 mg b.i.d. will continue to monitor and further recommendation to follow. Subjective Date/time seen: 08/16/21 13:18 08/14/2021 Interval history: patient with recurrent GI bleeding was t
[2021-08-16] MEDS: traZODone HCL 50 MG TABLET 100 MG PO (20:48)
[2021-08-17] VITALS (9 sets, daily range): BP systolic 98–156; BP diastolic 56–85; PULSE 83–93; RESP 18–24; TEMP 36.3–36.6; O2SAT 91–95
[2021-08-17] MEDS: IPRATROPIUM BR 0.02% INH SOLN 0.5 MG/2.5 ML VIAL INHALATION ×2 (02:07→08:40)
[2021-08-17] MEDS: ALBUTEROL SULFATE NEB 2.5 MG/0.5 ML INH 5 MG INHALATION ×2 (02:07→08:40)
--- NOTE | 2021-08-17 02:20 | PCRCNOTE ---
PT FOUND ON ROOM AIR WITH 02 SATURATION OF 82. RT PLACED PT BACK ON 1L. PT 02 SAT CAME UP TO 95%.
[2021-08-17 06:46] LABS: Hematocrit 28.5 % (37.0-47.0); Hemoglobin 9.2 g/dL (12.0-15.0); Mean Corpuscular HGB Conc 32.3 g/dl (32-36); Mean Corpuscular Hemoglobin 29.7 pg (26-34); Mean Corpuscular Volume 91.9 fl (80-100); Mean Platelet Volume 10.6 fl (7.4-10.4); Platelet Count Result 181 k/mm3 (150-375); White Blood Count 5.3 K/mm3 (4.5-10.0)
[2021-08-17 07:02] LABS: Anion Gap 2 mmol/L (8-16); Blood Urea Nitrogen 4 mg/dL (7-17); Calcium 8.2 mg/dL (8.4-10.2); Carbon Dioxide 32 mmol/L (22-30); Chloride 106 mmol/L (98-107); Estimated CRCL calculation 73 ml/min; Estimated Glomerular Filt Rate > 60; Glucose 104 mg/dL (65-110); Magnesium 1.9 mg/dL (1.6-2.3); Potassium 3.6 mmol/L (3.4-5.0); Sodium 140 mmol/L (137-145)
[2021-08-17] MEDS: FLUTICASONE/UMECLIDIN/VILANTER 200-62.5-25 MCG ELLIPTA 1 PUFF INHALATION (08:39)
[2021-08-17] MEDS: ROFLUMILAST 500 MCG TABLET PO (09:23)
[2021-08-17] MEDS: lisinopriL 20 MG TABLET PO (09:23)
[2021-08-17] MEDS: CITALOPRAM HYDROBROMIDE 20 MG TABLET PO (09:23)
[2021-08-17] MEDS: MAGNESIUM OXIDE 400 MG TABLET PO (09:24)
[2021-08-17] MEDS: PANTOPRAZOLE SODIUM IV 40 MG VIAL IV PUSH (09:24)
[2021-08-17] MEDS: ACETAMINOPHEN 325 MG TABLET 650 MG PO (10:04)
--- NOTE | 2021-08-17 10:38 | WPDGIPROGNO ---
Progress Note: A&P Assessment and Plan (1) Duodenal ulcer: Code(s): K26.9 - Duodenal ulcer, unspecified as acute or chronic, without hemorrhage or perforation Status: Acute Assessment and Plan: actively bleeding on admission and treated successfully endoscopically with gold probe, epi and clip hb responded to blood transfusion and up to 9, no more signs of bleeding she can go home with protonix twice daily will arrange egd in 3 months to assess healing (2) Upper GI hemorrhage: Code(s): K92.2 - Gastrointestinal hemorrhage, unspecified Status: Acute Assessment and Plan: resolved trend h/h iv iron avoid nsaid's (she says that was taking daily aspirin only because of headache- advised to discontinue) (3) Acute blood loss anemia: Code(s): D62 - Acute posthemorrhagic anemia Status: Acute Assessment and Plan: resolved (4) Epigastric pain: Code(s): R10.13 - Epigastric pain Status: Acute Assessment and Plan: resolved (5) COPD (chronic obstructive pulmonary disease): Qualifiers: COPD type: unspecified COPD Qualified Code(s): J44.9 - Chronic obstructive pulmonary disease, unspecified Code(s): J44.9 - Chronic obstructive pulmonary disease, unspecified Status: Acute (6) Hypertension: Code(s): I10 - Essential (primary) hypertension Status: Acute (7) Hx of adenomatous colonic polyps: Code(s): Z86.010 - Personal history of colonic polyps Status: Acute Assessment and Plan: she is due to have another colonoscopy will repeat in 3 months with EGD Subjective Date/time seen: 08/17/21 10:38 Interval history: no more bleeding, getting iv infusion. She is going home today, s/p 1 unit prbc yesterday Review of Systems Review of Systems: All systems reviewed & are unremarkable except as noted in HPI and below Exam Const: General: comfortable and no acute distress HENMT: General nose exam: Normal nares present Eyes: General: appearance normal, both eyes and all related structures Neck: Neck: no JVD Resp: Auscultation: no crackles and diminished lung sounds Cardio: Rate: regular rate Rhythm: regular rhythm GI: Inspection: non-distended GI Palp: Yes Soft to palpation and No Guarding due to palpation present (GI) Auscultation: normal bowel sounds Skin: General skin exam: normal color Neuro: Speech: normal speech Motor exam (neuro): Normal motor muscle tone present throughout Extrem: General: normal to inspection Psych: Mental Status: mental status grossly normal Objective Data Vital Signs Vital Signs: Vital Signs - 24 hr 08/16/21 13:20 08/16/21 13:46 08/16/21 14:05 Temperature 98.9 F 98.5 F Pulse Rate 81 75 80 Respiratory Rate 16 16 18 Blood Pressure 122/54 L 120/66 Pulse Oximetry 96 98 08/16/21 14:15 08/16/21 14:46 08/16/21 15:46 Temperature 98.1 F 98.4 F Pulse Rate 78 89 75 Respiratory Rate 18 16 16 Blood Pressure 125/65 128/60 Pulse Oximetry 93 98 08/16/21 16:00 08/16/21 16:46 08/16/21 20:00 Temperature 97.2 F L 98.2 F 99.4 F Pulse Rate 79 79 74 Respiratory Rate 16 16 18 Blood Pressure 134/65 125/60 149/80 H Pulse Oximetry 98 100 96 08/16/21 20:16 08/16/21 20:17 08/16/21 20:23 Temperature Pulse Rate 73 76 Respiratory Rate 20 20 Blood Pressure Pulse Oximetry 93 08/16/21 20:30 08/17/21 00:00 08/17/21 02:11 Temperature 97.6 F Pulse Rate 76 91 91 Respiratory Rate 20 18 20 Blood Pressure 141/60 H Pulse Oximetry 93 91 08/17/21 02:19 08/17/21 04:00 08/17/21 08:00 Temperature 97.4 F L 97.8 F Pulse Rate 87 84 88 Respiratory Rate 20 18 24 H Blood Pressure 132/56 L 156/85 H Pulse Oximetry 95 94 08/17/21 08:40 08/17/21 08:41 08/17/21 08:49 Temperature Pulse Rate 83 84 Respiratory Rate 20 20 Blood Pressure Pulse Oximetry 95 Intake/Output Intake/Output: Intake & Output 08/14/21 08/15/21 08/16/21 0
--- NOTE | 2021-08-17 10:44 | PM.DS ---
DS: Admitting Diagnosis Discharge Date 08/17/2021 Admitting Diagnosis Vomiting blood DS: Discharge Diagnosis Discharge Diagnosis (1) Upper GI hemorrhage: Code(s): K92.2 - Gastrointestinal hemorrhage, unspecified Status: Acute (2) Acute blood loss anemia: Code(s): D62 - Acute posthemorrhagic anemia Status: Acute (3) Tobacco abuse: Code(s): Z72.0 - Tobacco use Status: Acute (4) COPD (chronic obstructive pulmonary disease): Qualifiers: COPD type: unspecified COPD Qualified Code(s): J44.9 - Chronic obstructive pulmonary disease, unspecified Code(s): J44.9 - Chronic obstructive pulmonary disease, unspecified Status: Acute DS: Summary Hospital Course Reason for hospitalization: Chief Complaint: Vomiting blood Narrative: 70-year-old female with past medical history of chronic tobacco abuse, severe COPD, moderate pulmonary hypertension, hiatal hernia, peptic ulcer disease and chronic headaches who presented to the ER at [facility] via EMS due to vomiting blood. She reports that she vomited a large amount of blood. The patient reports that she had a EGD and colonoscopy a few months ago at [facility] due to upper GI bleed. At the time she was told she had bleeding in her small bowel. She stated she had 1 EGD with Jasvir is a [place] of the area and then had to have a repeat EGD a few days later due to recurrent bleeding. She reports that she has been having a intermittent epigastric abdominal pain for the last couple of months. When the pain occurs it will last for 2 or 3 days. She reports that the pain is sharp and stabbing in nature and at times can be a 10/10 in intensity. She reports that her pain has resolved after being placed on IV Protonix 40 mg and a Protonix drip at the outside ER. Her pain radiates through to her back. Today when she had the pain she went to laid down. She the shortly thereafter had to get up because she felt nauseated and vomited a large amount of blood. She reported that the blood was dark red in color and. Have clots. She had not had anything to eat all day. She reports that she usually does not eat until the evening meal. She had not had any nausea prior to the onset of her abdominal pain. She denies any fevers or chills. She has been taking aspirin at least 2 tabs a day despite every day due to frequent headaches. She reports that the aspirin is the only thing that helps with her headaches. She has been compliant with her home PPI therapy. It looks as if the patient was started on Carafate in April after her recent GI bleed. The patient cannot tell me what PPI she is actually on it does not look like she has had her Protonix filled since May 2020. The patient denies actually being on omeprazole which is listed on her home med rec. She denies any use of ibuprofen, naproxen or Advil. She is not on blood thinners. She denies any chest pain. She has chronic shortness of breath and wheezing that is unchanged from baseline. She could then used to smoke a pack of cigarettes per day. She reports that when she had her recent GI bleed a few months ago that she required a couple of units of blood transfusion. She denies any hematochezia or melena. The patient's hemoglobin April 2021 was 15 according to the ER physician at the outside hospital. Patient's hemoglobin at the outside hospital was 11.3. Hospital Course: 08/14/2021 Interval history: patient with recurrent GI bleeding was taken to the GI lab and had a EGD showed patient had bleeding vessel and duodenal and was cauterized and clipped was placed, patient continue to complaint abdominal pain will get the patient Dilaudid 0.5 mg every 3 hours as needed, will continue to monitor and further recommendation to follow. 08/15/2021 Interval history: patient with recurrent GI bleeding was taken to the GI lab and had a EGD showed patient had bleeding vessel and duodenal and was cauteri
[2021-08-17] MEDS: CYANOCOBALAMIN INJ 1,000 MCG/ML VIAL 1000 MCG IM (11:55)
== END 2021-08-17 12:40 | disposition home or self-care (01) | DRG 378 ==
PROVIDERS: Internal Medicine Gastroenterology; Admitting Provider Internal Medicine; PCP Internal Medicine; Visit Provider Family Medicine
PROC: 0DJ08ZZ Inspection of Upper Intestinal Tract, Via Natural or Artificial Opening Endoscopic (ICD-10-PCS; CPT 43235; principal; 2021-08-14 12:30)
DX: K26.0 Acute duodenal ulcer with hemorrhage (principal); D62 Acute posthemorrhagic anemia; J44.9 Chronic obstructive pulmonary disease, unspecified; K44.9 Diaphragmatic hernia without obstruction or gangrene; K29.70 Gastritis, unspecified, without bleeding; K26.9 Duodenal ulcer, unspecified as acute or chronic, without hemorrhage or perforation; I10 Essential (primary) hypertension; F41.8 Other specified anxiety disorders; K21.9 Gastro-esophageal reflux disease without esophagitis; F17.210 Nicotine dependence, cigarettes, uncomplicated; Z87.11 Personal history of peptic ulcer disease; Z86.010 Personal history of colon polyps; Z85.118 Personal history of other malignant neoplasm of bronchus and lung; Z90.49 Acquired absence of other specified parts of digestive tract
CPT/HCPCS: 36415; 36430; 80048; 80053; 82607; 82728; 82746; 83540; 83550; 83735; 85014; 85018; 85025; 85027; 86850; 86900; 86901; 86920; 87040; 87081; 88305; 94640; 96365; 96366; A9270; C9113; G0378; G0379; J0171; J1170; J1756; J2270; J2405; J2704; J3010; J3420; J3480; J7030; J7040; J7050; J7060; J7120; P9016

== ENCOUNTER 2021-11-02 07:56 | Outpatient (CLI) | payer MEDICARE, MEDICAID, SELFPAY ==
[2021-11-02 08:00] VITALS: PULSE 94; O2SAT 96
[2021-11-02 08:05] VITALS: PULSE 101; O2SAT 93
[2021-11-02 08:10] VITALS: PULSE 103; O2SAT 92
[2021-11-02 08:15] VITALS: PULSE 103; O2SAT 90
[2021-11-02 08:20] VITALS: PULSE 97; O2SAT 93
--- NOTE | 2021-11-02 08:34 | HOMEO2EVAL ---
Evaluation was performed at [facility] Home Oxygen Evaluation RC: Home Oxygen (O2) Evaluation Start: 11/02/21 08:29 Freq: Status: Active Protocol: RPE Activity Type Activity Date Activity User E-sign Co-sign Detail Recorded Client Recorded Date Recorded By Document 11/02/21 08:00 KRM [email or web address] 11/02/21 08:33 KRM Document 11/02/21 08:05 KRM [email or web address] 11/02/21 08:33 KRM Document 11/02/21 08:10 KRM [email or web address] 11/02/21 08:33 KRM Document 11/02/21 08:15 KRM [email or web address] 11/02/21 08:33 KRM Document 11/02/21 08:20 KRM [email or web address] 11/02/21 08:33 KRM 11/02/21 11/02/21 11/02/21 08:00 08:05 08:10 Home O2 Evaluation Test Phase Resting Exercise Exercise Oxygen Delivery Room Air Room Air Room Air Pulse Oximetry (90-100 %) 96 93 92 Pulse Rate (60-100 beats/min) 94 101 H 103 H Activity Tolerance Good Good Good Ambulation Distance (feet) Ambulation Distance (meters) Home Oxygen Evaluation Comments Treatment Charges O2 Evaluation - Outpatient 11/02/21 11/02/21 08:15 08:20 Home O2 Evaluation Test Phase Exercise Resting Oxygen Delivery Room Air Room Air Pulse Oximetry (90-100 %) 90 93 Pulse Rate (60-100 beats/min) 103 H 97 Activity Tolerance Good Good Ambulation Distance (feet) 500 Ambulation Distance (meters) 152.39 Home Oxygen Evaluation Comments PATIENT DOES NOT QUALIFY FOR HOME O2 AT THIS TIME. Treatment Charges
== END 2021-11-02 07:57 | disposition home or self-care (01) ==
LOC: ANHPFT 07:57
PROVIDERS: PCP Internal Medicine; Visit Provider Nurse Practitioner Family
DX: R06.00 Dyspnea, unspecified (principal)
CPT/HCPCS: 94618

== ENCOUNTER 2021-11-16 01:06 | Day surgery (SDC) | payer MEDICARE, MEDICAID, SELFPAY ==
[2021-11-02 13:17] VITALS: BMI 21.4
[2021-11-16 07:44] VITALS: BP 121/84; PULSE 92; RESP 17; TEMP 37.2; O2SAT 95; BMI 21.5
[2021-11-16] MEDS: LACTATED RINGERS 1,000 ML 150 ML IV CONT (07:52)
--- NOTE | 2021-11-16 07:54 | WPDANESEPPF ---
Anes - Initial Pre Proc Eval Procedure: Operation Date: 11/16/21 08:30 Proposed Procedures p Esophagogastroduodenoscopy & Screening Colonoscopy - Yuriy Rico MD Date/Time: 11/16/21 07:54 Surgeon: Yuriy Rico MD Pre Op Diagnosis: hx of colon polyps, duodenal ulcer Patient Data Age: 71 Gender: F Height: 1.6 m Weight: 55.2 kg Last Vital Signs Temp 37.2 C 11/16/21 07:44 Pulse 92 11/16/21 07:44 Resp 17 11/16/21 07:44 BP 121/84 11/16/21 07:44 Pulse Ox 95 11/16/21 07:44 O2 Del Method Room Air 11/16/21 07:44 Allergies Allergy/AdvReac Type Severity Reaction Status Date / Time No Known Allergies Allergy Verified 11/16/21 07:40 Home Medications Medication Instructions Recorded Confirmed Type clonazepam 0.5 mg tablet 0.5 mg PO DAILY PRN Anxiety 03/05/19 11/16/21 History lisinopril 20 mg tablet 20 mg PO DAILY 03/05/19 11/16/21 History trazodone 100 mg tablet 100 mg PO HS 03/05/19 11/16/21 History roflumilast 500 mcg tablet 500 mcg PO DAILY #30 tabs 03/26/19 11/16/21 Rx (Daliresp) albuterol sulfate 2.5 mg/3 mL 2.5 mg inhalation QID PRN Wheezing 12/01/20 11/16/21 History (0.083 %) solution for nebulization ipratropium bromide 17 See Rx Instructions .Route 07/02/21 11/16/21 Rx mcg/actuation HFA aerosol inhaler .COMPLEX #51.6 grams (Atrovent HFA) budesonide 160 mcg-glycopyr 9 See Rx Instructions .Route 07/15/21 11/16/21 Rx mcg-formot 4.8 mcg/actuation HFA .COMPLEX #32.1 grams inhaler (Breztri Aerosphere) pantoprazole 40 mg tablet,delayed 40 mg PO BID 4 weeks #60 tabs 08/17/21 11/16/21 Rx release (Protonix) buspirone 10 mg tablet 15 mg PO BID 11/02/21 11/16/21 History Patient hx anesthesia problems: none Family hx anesthesia problems: none Results Review: All pre-operative results and documents have been reviewed as part of the pre-operative evaluation. [facility] Past Medical History Medical History (Updated 08/15/21 @ 13:15 by Yuriy Rico MD) Anxiety and depression COPD (chronic obstructive pulmonary disease) PFTs May 2016: Severe obstructive pulmonary disease. Markedly decreased DLCO Duodenal ulcer Epigastric pain GERD (gastroesophageal reflux disease) History of cancer of lower lobe bronchus or lung Patient denies history of lung cancer or mass History of fracture of left ankle Hx of adenomatous colonic polyps Hypertension Moderate pulmonary hypertension Noted on echocardiogram December 2016: Grade 1 diastolic dysfunction, EF 77 5%, RVSP 45-50 PUD (peptic ulcer disease) Stye external Surgical History Surgical History (Updated 08/14/21 @ 04:38 by Vanita Fuchs DO) History of lobectomy of lung (~1999) Due to infected left upper lobe partial pneumonectomy Hx laparoscopic cholecystectomy Hx of colonoscopy Hx of esophagogastroduodenoscopy Hx of tonsillectomy Family History Family History Father Diabetes mellitus Sibling Family history of chronic obstructive pulmonary disease, Onset Age: 49 Mother Family history of chronic obstructive pulmonary disease, Onset Age: 72 Social History Social History (Updated 08/14/21 @ 04:44 by Vanita Fuchs DO) Social History: Patient lives in her own home. Her only son lives with her. She has smoked a pack of cigarettes per day since she has run 16 years old. She denies any alcohol use. She denies illicit substance use. 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 She denies any illicit substance use. Code status: DNR/DNI Surrogate decision maker: Son Smoking packs per day: 1 Smoking cigarettes per day: 20.0 Years smoked: 54 Smoking pack-years: 54.00 Smoking status: Current every day smoker Tobacco type: cigarettes Second hand tobacco smoke exposure: No Alcohol intake:
--- NOTE | 2021-11-16 08:23 | PM.HPGS ---
History of Present Illness History of Present Illness Consent: Risks, benefits, and alternatives have been discussed and questions answered. Patient agrees to proceed with procedure. Chief complaint: hx of colon polyps, duodenal ulcer Narrative: Bonny Storey is a 71 year old female with ugib due to duodenal ulcer 07/2021 with no more bleeding here to assess healing, also had colon polyps 2019 and due to have another colonoscopy Review of Systems Constitutional: Constitutional: Denies headache(s) and Denies weakness Eyes: Eyes: Denies blurry vision ENT: Reports Normal hearing present, Denies headache(s) and Denies neck pain Cardiovascular: Cardiovascular: Denies chest pain and Denies dyspnea Respiratory: Respiratory: Denies dyspnea Gastrointestinal: Gastrointestinal: Reports no additional gastrointestinal complaints Genitourinary: Genitourinary: Denies dysuria Musculoskeletal: Musculoskeletal: Denies neck pain Integumentary/Breasts: Skin/Breast: Denies dry skin Neurologic: Reports Normal hearing present, Denies headache(s) and Denies weakness Psychiatric: Psychiatric: Denies anxiety Endocrine: Endocrine: Denies change in body appearance Hematologic/Lymphatic: Hematologic/Lymphatic: Denies easy bleeding Allergic/Immunologic: Allergic/Immunologic: Denies urticaria PMFSH Past Medical History Medical History (Updated 08/15/21 @ 13:15 by Yuriy Rico MD) Anxiety and depression COPD (chronic obstructive pulmonary disease) PFTs May 2016: Severe obstructive pulmonary disease. Markedly decreased DLCO Duodenal ulcer Epigastric pain GERD (gastroesophageal reflux disease) History of cancer of lower lobe bronchus or lung Patient denies history of lung cancer or mass History of fracture of left ankle Hx of adenomatous colonic polyps Hypertension Moderate pulmonary hypertension Noted on echocardiogram December 2016: Grade 1 diastolic dysfunction, EF 77 5%, RVSP 45-50 PUD (peptic ulcer disease) Stye external Surgical History Surgical History (Updated 08/14/21 @ 04:38 by Vanita Fuchs DO) History of lobectomy of lung (~2000) Due to infected left upper lobe partial pneumonectomy Hx laparoscopic cholecystectomy Hx of colonoscopy Hx of esophagogastroduodenoscopy Hx of tonsillectomy Family History Family History Father Diabetes mellitus Sibling Family history of chronic obstructive pulmonary disease, Onset Age: 49 Mother Family history of chronic obstructive pulmonary disease, Onset Age: 72 Social History Social History (Updated 08/14/21 @ 04:44 by Vanita Fuchs DO) Social History: Patient lives in her own home. Her only son lives with her. She has smoked a pack of cigarettes per day since she has run 16 years old. She denies any alcohol use. She denies illicit substance use. 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 She denies any illicit substance use. Code status: DNR/DNI Surrogate decision maker: Son Smoking packs per day: 1 Smoking cigarettes per day: 20.0 Years smoked: 54 Smoking pack-years: 54.00 Smoking status: Current every day smoker Tobacco type: cigarettes Second hand tobacco smoke exposure: No Alcohol intake: never Substance use: never Substance use type: does not use Living arrangements: with family Gender identity (if verbalized by the patient): Female Spiritual care concerns: No Meds Home Medications and Allergies Home Medications Medication Instructions Recorded Confirmed Type clonazepam 0.5 mg tablet 0.5 mg PO DAILY PRN Anxiety 03/05/19 11/16/21 History lisinopril 20 mg tablet 20 mg PO DAILY 03/05/19 11/16/21 History trazodone 100 mg tablet 100 mg PO HS 03/05/19 11/16/21 History roflumilast 500 mcg tablet 500 mcg PO DAILY #30 tabs 03/26/1911/16
--- NOTE | 2021-11-16 09:30 | SUR.OPER ---
EGD START 835, END 838. COLONOSCOPY START 843, END 928.
[2021-11-16 09:33] VITALS: BP 115/66; PULSE 82; RESP 29; O2SAT 96
[2021-11-16 09:43] VITALS: BP 129/76; PULSE 80; RESP 20; O2SAT 97
[2021-11-16 09:53] VITALS: BP 129/65; PULSE 81; RESP 20; O2SAT 94
== END 2021-11-16 10:10 | disposition home or self-care (01) ==
PROVIDERS: PCP Internal Medicine; Visit Provider Internal Medicine Gastroenterology
PROC: 0DJ08ZZ Inspection of Upper Intestinal Tract, Via Natural or Artificial Opening Endoscopic (ICD-10-PCS; CPT 43235; principal; 2021-11-16 08:30)
DX: Z12.11 Encounter for screening for malignant neoplasm of colon (principal); D12.0 Benign neoplasm of cecum; D12.4 Benign neoplasm of descending colon; D12.5 Benign neoplasm of sigmoid colon; D12.3 Benign neoplasm of transverse colon; Z87.11 Personal history of peptic ulcer disease; K29.80 Duodenitis without bleeding; Z90.49 Acquired absence of other specified parts of digestive tract; K64.8 Other hemorrhoids; K57.30 Diverticulosis of large intestine without perforation or abscess without bleeding; K29.50 Unspecified chronic gastritis without bleeding; K62.9 Disease of anus and rectum, unspecified; F41.8 Other specified anxiety disorders; J44.9 Chronic obstructive pulmonary disease, unspecified; I10 Essential (primary) hypertension; Z85.118 Personal history of other malignant neoplasm of bronchus and lung; F17.210 Nicotine dependence, cigarettes, uncomplicated; Z79.51 Long term (current) use of inhaled steroids
CPT/HCPCS: 45385; 43239; 88305; J2704; J7120

== ENCOUNTER 2022-12-10 11:25 | Outpatient (CLI) | payer MEDICARE, MEDICAID, SELFPAY ==
--- NOTE | ~2022-12-10 | XR_ITS ---
EXAMINATION: XR chest 2V DATE: 12/10/2022 11:47 INDICATION: Chronic obstructive pulmonary disease with increasing shortness of breath TECHNIQUE: PA and lateral views of the chest were obtained. COMPARISON: Chest CT dated 01/02/2020 and 12/28/2018 FINDINGS: Again seen is hyperexpansion of lungs particularly in the upper lung zones where there is increased l ucency and architectural distortion consistent with emphysema better appreciated on prior CT. Again s een is a branching opacity at the posterolateral left lower lung zone on prior CT studies correspondi ng to a chronic bronchocele. Calcified nodules in the right lower lung zone along with calcified righ t hilar and mediastinal lymph nodes consistent with old granulomatous disease. No new airspace opacit ies, pulmonary edema, pleural effusion or pneumothorax. Heart size is normal. Mild thoracolumbar dext rocurvature. IMPRESSION: 1. Emphysema with chronic bronchoceles in the left lower lobe. No acute cardiopulmonary disease. Reviewed, dictated and finalized at location A. IMPRESSION: 1. Emphysema with chronic bronchoceles in the left lower lobe. No acute cardiop ulmonary disease.
== END 2022-12-10 11:26 | disposition home or self-care (01) ==
PROVIDERS: PCP Internal Medicine; Visit Provider Physician Assistant
DX: J44.9 Chronic obstructive pulmonary disease, unspecified (principal); R06.02 Shortness of breath; J43.9 Emphysema, unspecified
CPT/HCPCS: 71046

== ENCOUNTER 2023-02-28 12:33 | Outpatient (CLI) | payer MEDICARE, MEDICAID, SELFPAY ==
--- NOTE | 2023-02-28 13:08 | ECHO_ITS ---
Patient Info Name: Bonny Storey Age: 72 years : 1950 Gender: Female Ht: 63 in Wt: 116 lbs BSA: 1.53 m2 HR: 103 bpm BP: 76 / 56 mmHg Heart Rhythm: Sinus Rhythm Technical Quality: Good Exam Date: 02/28/2023 1:09 PM Exam Location: Echo Lab Patient Status: Outpatient Admit Date: 02/28/2023 Staff Ordering Physician: Leo Williamson MD Extension Service Advisor: Eleni Dumont RDCS Attending Provider: Leo Williamson MD Referring Physician: Clay ROGER; Exam Type: CA echo doppler color flow Study Info Indications R06.02 - Shortness of breath Complete two-dimensional, color flow and Doppler transthoracic echocardiogram is performed. Summary 1. Complete two-dimensional, color flow and Doppler transthoracic echocardiogram is performed. 2. Left ventricular chamber dimension is normal. 3. Ventricular septum is sigmoid shaped. No LVOT obstruction. 4. Left ventricular systolic function is normal, estimated at 65-70%. 5. There is mild concentric increased left ventricular wall thickness. 6. The left ventricular diastolic function is grade I diastolic dysfunction. 7. E/e' 6 is not elevated. 8. Left atrial chamber dimension is mildly enlarged. 9. There is trace mitral valve regurgitation. 10. There is trace tricuspid valve regurgitation. 11. Moderate pulmonary hypertension, estimated pulmonary arterial systolic pressure is 55 mmHg. Left Ventricle E/e' 6 is not elevated. Ventricular septum is sigmoid shaped. No LVOT obstruction. Left ventricular chamber dimension is normal. Left ventricular systolic function is normal, estimated at 65-70%. There is mild concentric increased left ventricular wall thickness. The left ventricular diastolic function is grade I diastolic dysfunction. Right Ventricle Right ventricular chamber dimension is normal. Right ventricular systolic function is normal. Left Atria Left atrial chamber dimension is mildly enlarged. Right Atria Right atrial chamber dimension is normal. Aortic Valve The aortic valve is trileaflet. There is no aortic valve stenosis. There is no aortic valve regurgitation. Pulmonic Valve There is no pulmonic regurgitation. Mitral Valve There is no mitral valve stenosis. There is trace mitral valve regurgitation. Tricuspid Valve There is trace tricuspid valve regurgitation. Moderate pulmonary hypertension, estimated pulmonary arterial systolic pressure is 55 mmHg. Pericardium/Pleural There is no pericardial effusion. Inferior Vena Cava Normal inferior vena cava with >50% collapse upon inspiration consistent with normal right atrial pressure, 5 mmHg. Aorta The aortic root size at the sinus of Valsalva is normal. Left Ventricular Outflow Tract Name Value Normal LVOT 2D LVOT Diameter 2.0 cm LVOT Doppler LVOT Peak Gradient 12 mmHg LVOT Mean Gradient 6 mmHg LVOT VTI 27 cm LVOT VTI/AV VTI Ratio 1.0 LVOT Stroke Volume 83 ml LVOT CO 7.4 l/min LVOT CI 4.8 l/min/m2 Pulmonic Valve
== END 2023-02-28 12:34 | disposition home or self-care (01) ==
LOC: ANHCARD 12:33
PROVIDERS: PCP Internal Medicine; Visit Provider Internal Medicine Pulmonary Disease
DX: R06.02 Shortness of breath (principal)
CPT/HCPCS: 93306